=== PATIENT | male | born 1955 | race Caucasian/White ===

== ENCOUNTER 2023-05-05 11:53 | Day surgery (SDC) | payer MEDICARE, BC, SELFPAY ==
[2023-04-25 08:44] VITALS: BMI 24.3
[2023-05-05] VITALS (10 sets, daily range): BP systolic 110–179; BP diastolic 67–92; PULSE 70–90; RESP 12–20; TEMP 36.5–36.8; O2SAT 14–99; BMI 24.3
--- NOTE | 2023-05-05 | DI.RAD.S_ITS ---
PROCEDURE: XR HIP W PEL IF DONE RT 2V INDICATIONS: RIGHT ANTERIOR HIP TECHNIQUE: 2 view(s) of the hip acquired. COMPARISON: [facility] [place], [place], XR PELVIS WITH LATERAL HIP RIGHT, 03/14/2023, 14:25. FINDINGS: Multiple intraoperative fluoroscopy images demonstrate right hip arthroplasty, with hardware components in expected positions. The hip joint appears congruent. The visualized bony structures appear intact. IMPRESSION: Right hip arthroplasty. Dictated by: Corby Rodriguez M.D. on 05/05/2023 at 16:55 Approved by: Corby Rodriguez M.D. on 05/05/2023 at 16:56
--- NOTE | 2023-05-05 06:00 | DI.RAD.S_ITS ---
PROCEDURE: XR HIP W PEL IF DONE RT 2V INDICATIONS: postop TECHNIQUE: AP pelvis and lateral view of the right hip acquired. COMPARISON: [facility], [place], XR HIP W PEL IF DONE RT 2V, 05/05/2023, 15:21. FINDINGS: Bones: Patient is status post right hip arthroplasty, with hardware components in expected positions. The hip joint appears congruent. The visualized bony structures appear intact. Soft tissues: Overlying postoperative changes are noted. No suspicious soft tissue densities. IMPRESSION: Expected postoperative changes from right hip arthroplasty. Dictated by: Edil Patel M.D. on 05/05/2023 at 17:57 Approved by: Edil Patel M.D. on 05/05/2023 at 17:57
[2023-05-05] MEDS: CELECOXIB 200 MG CAPSULE PO (12:27)
[2023-05-05] MEDS: ACETAMINOPHEN 325 MG TABLET 975 MG PO (12:27)
[2023-05-05] MEDS: LACTATED RINGERS 1,000 ML 42 ML IV ×2 (12:28→14:57)
[2023-05-05] MEDS: VANCOMYCIN 1,000 MG/200 ML PIGGYBACK 200 MG IV (12:58)
[2023-05-05 13:05] LABS: Blood Urea Nitrogen 38 mg/dL (9-20); Calcium 9.4 mg/dL (8.4-10.2); Carbon Dioxide 22 mmol/L (22-32); Chloride 102 mmol/L (98-107); Estimated Glomerular Filt Rate 52 mL/min (>60); Glucose 111 mg/dL (80-110); Sodium 133 mmol/L (137-145)
[2023-05-05 13:07] LABS: HEMOLYSIS 102 (0-50)
[2023-05-05 13:12] LABS: Potassium 5.3 mmol/L (3.4-5.1)
--- NOTE | 2023-05-05 14:05 | PM.PREOP ---
Pre-operative Note Interval Note History & Physical reviewed/Exam performed by Physician: Yes Changes to H&P: Yes
[2023-05-05] MEDS: TRANEXAMIC ACID 1,000 MG VIAL 1000 MG INJ ×2 (14:32→16:19)
--- NOTE | 2023-05-05 14:50 | SUR.OPER ---
Supine on padded [place] table with bilateral legs secured in padded positioning boots and suspended in positioning spars, operative leg in traction per surgeon. Head on one pillow. Arm on non-operative side secured on padded armboard <90 degrees abduction. Arm on operative side padded and resting across chest then secured with tape over sheet. Padded perineal post in place per surgeon.
[2023-05-05] MEDS: CEFAZOLIN 2 GM/100 ML PREMIX 100 ML IV ×2 (14:56→23:00)
[2023-05-05] MEDS: BUPIVACAINE 0.25% (PF) 60 ML, EPINEPHrine 0.3 MG INJ (14:58)
[2023-05-05] MEDS: BUPIVACAINE LIPOSOME 266 MG/20 ML VIAL INJ (14:59)
--- NOTE | 2023-05-05 16:57 | P.OP_ITS ---
Operative Date/Time/Diagnoses Date of procedure: 05/05/23 Time of procedure: 14:20 Pre-op diagnosis: Severe right hip OA Post-op diagnosis: same Procedure & Clinicians Procedure: Right total hip arthroplasty anterior approach Same procedure as scheduled: Yes Indications: The patient has had progressively worsening right hip pain with radiographic changes consistent with arthritis. Non-operative management has failed and the patient has requested total hip replacement. The risks, benefits and alternatives to surgery were discussed with the patient prior to proceeding. Risks discussed included, but were not limited to, failure to relieve pain, leg length discrepancy, dislocation, stiffness, infection, nerve damage, deep venous thrombosis, pulmonary embolism, stroke, coma, heart attack, permanent paralysis and , as well as the potential need for eventual revision of the prosthetic. Surgeon: Gwen Borrero Miller Head Wet Process: Harsha Hill Anesthesia Type: Spinal Operative Notes Findings: Severe right hip OA and avascular necrosis with significant collapse of the femoral head, extensively fragmented head Closure Type: primary Specimen(s): none sent Prosthetic devices, grafts, tissues, transplants, or devices: Borrero and Nephew 58 mm cup, 58 x 36 neutral poly liner, size 7 standard offset a nthology a fit, two 6.5 mm screws, Estimated Blood Loss (mL): 250 Blood products transfused: none Procedure in detail: The patient was brought to the operating room. Patient was carefully positioned in the supine position. Time-out was performed and antibiotics were given. Anesthesia was induced. He was positioned in the on the table in order to allow hyperextension of the hip. The right lower extremity was prepped and draped in a standard sterile fashion. An anterior right hip incision was made 1 fingerbreadth lateral to the anterior superior iliac spine and extended distally towards the greater trochanter. Dissection was carried out through skin and subcutaneous tissues. Superficial hemostasis was achieved. The fascia over the tensor fascia fadumo was defined and incised with a knife. Two Allis clamps were used to grasp the fascia. Tensor fascia fadumo was retracted laterally. A gelpi retractor was placed. Dissection was carried out down along the neck. The circumflex vessels were carefully identified and cauterized with the Aqua Mantis. A PA was used throughout the procedure and was essential for retraction intraoperative positioning and helping assist with hemostasis. There was good visualization of the femoral neck. A Cobra was placed superior to the neck and the gluteus fibers were carefully stripped from that superior aspect of the capsule. A 2nd retractor was placed along the inferior aspect of the neck. The rectus insertion along the capsule was partially released. A 3rd retractor that was then gently placed over the rim of the acetabulum under the rectus. Capsule was carefully incised and released from the intertrochanteric line circumferentially superior to the mid sagittal line and inferiorly to the mid sagittal line until the lesser trochanter was palpable. A tag stitch was placed both in the superior and inferior limb of the capsular insertion. Along the acetabulum capsule was also released up to the mid sagittal 12:00 position. A portion of the labrum was resected. A saw was used to perform an osteotomy at the level of the intertrochanteric line and the junction of the superior femoral neck leaving approximately 1 finger breath of residual inferior neck above the lesser trochanter. A 2nd cut was made along the femoral neck at the base of the head and a napkin ring of neck was removed. Corkscrew was placed in the femoral head and the head was removed without difficulty. There was severe fragmentation of the femoral head. I did a limited synovectomy and picked fragments of the femoral head at the capsule. Retractors were then repositioned around the acetabulum. Residual labrum was resected and additional osteophytes were removed. A reamer that was 4 mm below the templated size was placed by hand in the acetabulum and it was reamed to centralize the acetabulum. It was then reamed up to 2 under the templated size and fluoroscopy was brought in to confirm the position of the reaming and depth of reaming. I reamed 1 under the anticipated size. He had moderate softening of his acetabulum. A trial cup was placed and noted that it was appropriately sized and fluoroscopy confirmed position and depth. The component was open and inserted without difficulty fluoroscopic imaging was used to confirm that the cup had been shilpa quately seated and was well positioned. It was further stabilized with 2 screws. Neutral poly liner was placed. The cup was tested and noted to be stable. Attention was then directed to the femur. The femur was gently hyperextended additional capsular release was performed as needed in order to allow adequate visualization of the proximal femur with elevation of the femur. Patient was placed in a hyperextended slightly adducted position with maximum external rotation. Box osteotome was used to check for any residual neck as well as sclerotic bone along the trochanter. [place] pepper was placed in the femur. Additional broaching was performed. Canal finder was used to determine the alignment of the canal and position. Size 1 broach was placed. The canal was then appropriately broached up to the templated size as long as there was adequate stability of the broach and serial advancement of the broach without excessive impingement. Specific attention was directed at avoiding varus attem pting to direct the distal aspect of the broach more anteriorly and avoiding excessive anteversion. Trial reduction showed acceptable range of motion, good stability, no posterior impingement, druze of leg length and appropriate lateral shuck. I also hyperflexed the hip and checked that there was no impingement anteriorly and there was good stability with flexion, adduction and internal rotation. Marcaine and Exparel were injected. The stem was placed without difficulty. Repeat trial reduction and x-ray showed acceptable overall position, length, and no evidence of the femoral fracture. Final head was placed. Wound was meticulously irrigated with normal saline. The hip was reduced and additional Exparel and Marcaine were injected. The capsule was closed with interrupted nonabsorbable sutures. The fascia of the tensor was closed with interrupted and running Vicryl. No drain was placed. Any tensor fascia fadumo muscle that appeared to be contused or injured which was a minimal amount was carefully resected. Capsule around the tensor was injected with Exparel and Marcaine. The skin was closed with barbed stitches for the subcutaneous tissue and skin. We also used surgical glue. The wound was dressed sterilely. Brief Betadine soak was also used and was meticulously irrigated with normal saline. Patient was transferred to recovery room in satisfactory condition. Complications: none Post-operative Condition: stable Disposition: Acute Care Plan for aftercare: The patient will be maintained on a standard total hip replacement protocol with weight bearing as tolerated and anterior hip precautions. The patient will receive Aspirin and sequential compression devices for DVT prophylaxis. The patient will be discharged home when safe for the home environment.
[2023-05-05] MEDS: OXYCODONE IR 5 MG TABLET PO (17:04)
[2023-05-05] MEDS: LACTATED RINGERS 1,000 ML 100 ML IV (17:45)
[2023-05-05] MEDS: ACETAMINOPHEN 325 MG TABLET 650 MG PO ×2 (17:46→23:00)
--- NOTE | 2023-05-05 19:25 | PC.NURSE ---
Patient is in alot of pain just got back from surgery, his pain level is 7 out of 10.
[2023-05-05] MEDS: HYDROMORPHONE 0.5 MG INJ IV (19:45)
[2023-05-05] MEDS: OXYCODONE IR 10 MG TABLET PO ×2 (20:39→23:00)
[2023-05-05] MEDS: ASPIRIN EC 81 MG TABLET PO (20:39)
[2023-05-05] MEDS: DOCUSATE 100 MG CAPSULE PO (20:40)
[2023-05-05] MEDS: GABAPENTIN 100 MG CAPSULE PO (20:41)
[2023-05-06] MEDS: IBUPROFEN 400 MG TABLET PO (01:55)
[2023-05-06] MEDS: OXYCODONE IR 5 MG TABLET PO (01:56)
[2023-05-06] MEDS: OXYCODONE IR 10 MG TABLET PO ×2 (04:02→09:31)
[2023-05-06 06:23] LABS: Hematocrit 26.7 % (41-53); Hemoglobin 9.2 g/dL (13.5-17.5)
[2023-05-06] MEDS: CEFAZOLIN 2 GM/100 ML PREMIX 100 ML IV (06:48)
[2023-05-06 08:52] VITALS: BP 159/96; PULSE 78
[2023-05-06] MEDS: GABAPENTIN 100 MG CAPSULE PO (08:52)
[2023-05-06] MEDS: lisinopriL 20 MG TABLET PO (08:52)
[2023-05-06] MEDS: DOCUSATE 100 MG CAPSULE PO (08:52)
[2023-05-06] MEDS: ASPIRIN EC 81 MG TABLET PO (08:53)
[2023-05-06] MEDS: polyethylene glycoL 3350 17 GM POWD.PACK PO (08:54)
[2023-05-06 09:13] VITALS: BP 159/96; PULSE 78; RESP 18; TEMP 36.7; O2SAT 98
--- NOTE | 2023-05-06 09:35 | PT.IIE ---
Current Diagnoses Unilateral primary osteoarthritis, right hip (05/05/23) Idiopathic aseptic necrosis of right femur (05/05/23) Surgery Performed Operation Date: 05/05/23 13:45 Actual Procedures p Total Hip Arthroplasty/Anterior Approach(Right) - Gwen Borrero MD Surgical History (Last Reviewed 05/06/23 @ 10:42 by Harsha Hill PA-C) History of hernia repair Status post excision of Matthews's neuroma Medical History (Last Reviewed 05/06/23 @ 10:42 by Harsha Hill PA-C) Arthritis History of meniscal tear Hypertension Physical Therapy Inpatient Evaluation/Re-Eval M1 PT/OT-IP Prior Functional Status Start: 05/06/23 12:22 Freq: NEEDED Status: Discharge Protocol: Document 05/06/23 09:35 AB (Rec: 05/06/23 12:46 AB [email or web address]) Medical Review Prior Functional Status Medical History Reviewed Yes Communication able to make needs known Mobility and Gait pt stated that he is modified independent with all mobilities and ambulation without AD but started using a SPC a month ago due to hip pain. per spouse, pt mostly in bed for the last 2 weeks due to hip pain but able to ambulate to the toilet using SPC Activities of Daily Living and IADL's Pt having pain with ADl needs. Social History Household Members spouse Living Arrangements House Number of Floors (Floors) One Floor Number of Stairs To Enter/Railing? 2 steps without rails to enter Home Environment Standard Height Toilet,Tub/ Shower Home Equipment Four Wheel Walker,Straight Cane,Raised Toilet Seat w/ Armrests,Shower Seat with Backrest,Hand Held Shower Additional Social History Comment spouse will be able to assist pt at home M2 PT-IP Current Condition Start: 05/06/23 12:22 Freq: NEEDED Status: Discharge Protocol: Document 05/06/23 09:35 AB (Rec: 05/06/23 12:46 AB [email or web address]) Physical Therapy Current Condition Current Condition Evaluation Date 05/06/23 Treatment Diagnosis s/p R ROLLY anterior approach; difficulty in walking Onset Date 05/05/23 M3 PT-IP Subjective Start: 05/06/23 12:22 Freq: NEEDED Status: Discharge Protocol: Document 05/06/23 09:35 AB (Rec: 05/06/23 12:46 AB [email or web address]) Subjective Physical Therapy Visit Type Type Initial Evaluation Visit Start Time 09:35 Visit Stop Time 11:14 Total Visit Minutes 84 Notes pt seen for split visits: 935 to 945am and 1000 to 1114 am. 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 Physical Therapy Visit Comments Patient Comments agreeable to do PT Therapy Pain Assessment Pain When Pain Assessed At Rest Location Right Hip Intensity 3 Scale Used pain increases with mobility to 7/10 Pain Behaviors Facial Grimacing,Guarding, Holding Area Pain Management Techniques Distraction,Modification of Treatment,Re-positioning, Timing of Activity with Medications M4 PT-IP Mobility and Gait Start: 05/06/23 12:22 Freq: NEEDED Status: Discharge Protocol: Document 05/06/23 09:35 AB (Rec: 05/06/23 12:46 [email or web address]) PT-Bed Mobility Assessment Supine to Sit Supine to Sit Minimal Assistance Sit to Supine Sit to Supine Minimal Assistance PT-Transfer Assessment Sit to and From Stand Sit to and from Stand Contact Guard Assistance Equipment Transfer Assistive Device Gait Belt,Front Wheeled Walker Orthotic/Prosthetic Devices or Brace: No Transfers Transfer Destination Chair Transfer Technique ambulated Transfer Ability Level of Assist Contact Guard Assistance,1 Person Assistance,Use of Upper Extremities Comments Mobility Comments checked on pt this morning and spouse in room and stated that pt is using the toilet. Spouse provided pt's home set up and PLOF. pt completed toileting. Assisted out from the toilet and required CGA with ambulation using FWW. pt impulsive. stated that he knows his hip precautions but pt tends not to adhere to his precautions. pt also ambulates on RLE with heel up and pt stated that he has pain when he puts weigth on RLE. educated on importance of weight bearing on RLE and WBAT per doctor's order. pt sat on EOB. Left pt with spouse and informed that PT will see pt again after rounds meeting. checked back on pt and pt in bed. spouse in room. educated pt and spouse regarding R hip anterior precautions. educated on bed positioning. heel slides completed prior to mobility in supine. pt completed supine to sit min A and max cues for techniques . pt with increase R hip guarding and tends to lean away from R hip in sitting and have LE in extension. educated pt on importance of midline positioning/posture and weight bearing on RLE. completed sit to stand CGA and ambulated in room using FWW ~ 20 ft CGA. pt sat on EOB and completed sit to supine min A with RLE elevation to bed. Caregiver training conducted. spouse assisted pt with bed mobility min A. educated on use of safety belt and how to assist pt. spouse was able to put safety belt on pt. assisted pt with sit to stand ambulation using FWW ~ 100 ft CGA. occasionally instructions provided by PT for hip precautions and safety . stair climbing training. educated spouse and pt on how to stairs using SPC + [employer]. pt completed up/down platform step using SPC and [employer] min A with PT assisting on first set . spouse counter demonstrated and was able to assist pt safely. pt ambulated back to his room using FWW CGA ~ 30 ft . sat on the chair. positioned on the chair. call light and table placed within reach. pt and spouse without further concerns. spouse stated that she will borrow a FWW but will buy one if needed. Gait Assessment Gait Gait Assistance Required: Contact Guard Assist Distance (Feet) 100 Able to Maintain Weight Bearing Status Yes During Gait Assistive Devices Assistive Device Gait Belt,Front Wheeled Walker Orthotic/Prosthetic Devices or Brace: No Gait Deviations General Gait Pattern Antalgic,Decreased Feet Clearance Factors Limiting Gait Function Factors Limiting Gait Function Decreased Activity Tolerance, Decreased Strength,Limited Range of Motion,Pain,Poor Balance,Poor Safety Awareness Stair Climbing Assessment Evaluation Level of Assist On Stairs Minimal Assistance Devices Stair Climbing Assistive Devices Straight Cane Technique/Endurance Stair Climbing Direction Ascend and Descend Stair Climbing Technique Step to Step Number of Steps Climbed 1 Query Text: Stair Climbing Set # Repetitions (reps) 2 PT-Balance Assessment Sitting Balance and Reactions Static Sitting Balance Ability Good Dynamic Sitting Balance Ability Fair Standing Balance and Reactions Static Standing Balance Ability Fair Dynamic Standing Balance Ability Fair Device Used FWW M5 PT-IP Objective Assessments Start: 05/06/23 12:22 Freq: NEEDED Status: Discharge Protocol: Document 05/06/23 09:35 AB (Rec: 05/06/23 12:46 AB [email or web address]) Orientation Orientation/Cognition Level of Alertness Alert Orientation Name,Place,Situation Language Function Ability No Deficits Noted Safety Awareness Decreased Safety Awareness Memory Description Short Term Impaired Gross Range of Motion Lower Extremity ROM Assessment Within Functional Limits Strength Lower Extremity Strength Assessment Right Impaired Hip 3-/5 Knee 4-/5 Coordination Assessment Gross Coordination Gross Coordination WNL Sensation Assessment Sensation Gross Sensation WNL Muscle Tone Muscle Tone WNL Yes M6 PT-IP Treatment Start: 05/06/23 12:22 Freq: NEEDED Status: Discharge Protocol: Document 05/06/23 09:35 AB (Rec: 05/06/23 12:46 AB [email or web address]) Physical Therapy Treatment Education Education Provided Precautions,Weight Bearing Status,Post-Op Packet,Safety M7 PT-IP Assessment and Plan Start: 05/06/23 12:22 Freq: NEEDED Status: Discharge Protocol: Document 05/06/23 09:35 AB (Rec: 05/06/23 12:46 AB [email or web address]) PT Summary Assessment and Plan Potential Rehabilitation Potential Fair Status of Condition at Evaluation Evolving Summary Impairments Pain,ROM,Strength,Balance, Coordination,Sensation,Tone, Cognition,Bed Mobility, Transfers,Gait,Activity Tolerance Assessment Summary pt is a 67 y/o male who underwent R ROLLY anterior approach. pt has R hip anterior precautions and is WBAT. educated pt and spouse regarding anterior hip precautions, mobility techniques and safety. pt requiring min A with bed mobility, CGA with transfers and ambulation using FWW and min A with stair climbing using SPC + [employer]. pt plans to go home with spouse and caregiver training completed. spouse is able to assist pt safely with mobility and may go home when medically stable. pt stated that he has outpt PT set up. Goals Bed Mobility Goal Independent Transfer Goal Independent,Front Wheeled Walker Gait Goal Independent,Front Wheel Walker Gait Distance 250 Other Goals up/down 2 steps using SPC+ [employer] CGA Days to Meet Goals 5 Frequency of Treatment Frequency Of Treatment Twice a Day Treatment Plan Physical Therapy Treatment Plan Bed Mobility Training,Transfer Training,Gait Training, Therapeutic Exercise,Balance Retraining,Post Op Education, Discharge Planning,Hot or Cold Pack,Neuromuscular Re-ed, Coordination Retraining,Manual Therapy Precautions Anterior Hip Precautions No Hip Extension,No Hip External Rotation Weight Bearing Status Weight Bearing Status Weight Bear as Tolerated Allowed Weight Bearing Amount (enter % RLE WBAT or #) (%) Recommendations To Nursing Amount of Assist Needed 1 Person Assist Discharge Recommendations PT Discharge Recommendations Home with Assistance, Outpatient PT Equipment Needed for Home Before FWW Discharge Transportation Needs at Discharge Private Vehicle
--- NOTE | 2023-05-06 10:40 | P.DS_ITS ---
History of Present Illness History of Present Illness Date Patient Seen: 05/06/23 Time Patient Seen: 07:50 Chief complaint: Hip pain Narrative: Hip pain is [id number]. Denies fever or chills. No nausea or vomiting. Patient has assistance at home. Discharge Providers Provider Discharge Date: 05/06/23 Primary care physician: Yung Alejandre MD Consults: 05/05/23 06:00 Consult to Anesthesiology Routine Comment: Consulting Provider: Anesthesiologist Reason for consultation: Regional block for post operative pain control 05/05/23 17:21 Consult to Discharge Planning Routine Comment: Consult to Occupational Therapy Evaluate & Treat Comment: Physician Instructions: Evaluate and treat Consult to Physical Therapy Evaluate & Treat Comment: Physician Instructions: post op ROLLY protocol Discharge provider: Harsha Hill PA-C Summary Hospital Course Discharge Diagnosis: Avascular necrosis right hip Hospital Course: Patient admitted to the hospital for right total hip arthroplasty due to avascular necrosis. Patient consented to the same. Patient underwent right total hip arthroplasty, anterior approach May 05, 2023. Patient back in his room recovering well as in stable condition. Patient will mobilize with physical therapy. Anterior hip precautions. Multimodal pain management. Discharge home today after physical therapy if safe for home environment. Status at Discharge Cognitive/behavioral status at discharge: at baseline, oriented Functional status at discharge: uses cane/walker Overall status at discharge: patient is progressing back to baseline Exam Vital Signs (past 8 hours): - 05/06/23 08:52 05/06/23 09:13 Temperature 98.0 F Pulse Rate 78 78 Respiratory Rate 18 Blood Pressure 159/96 H 159/96 H Pulse Oximetry 98 Oxygen Delivery Method Room Air Oxygen Flow Rate 0 Narrative Exam Narrative: 67-year-old male resting comfortably in no apparent distress. Dressing is clean, dry and intact. Motor functions intact bilateral lower extremities. Sensation grossly intact to light touch. Const General: cooperative and comfortable Nutritional Appearance: average body habitus Orientation: alert Resp Effort & Inspection: normal respiratory effort and able to speak in complete [facility] Objective Labs 05/06/23 06:10 05/05/23 12:00 Labs: Laboratory Results - last 24 hr 05/05/23 05/06/23 12:00 06:10 Hgb 9.2 L Hct 26.7 L Sodium 133 L Potassium 5.3 H Chloride 102 Carbon Dioxide 22 BUN 38 H Creatinine 1.46 H Estimated GFR 52 L BUN/Creatinine Ratio 26.0 H Glucose 111 H Calcium 9.4 PFSH Medical History Arthritis History of meniscal tear Hypertension Surgical History History of hernia repair Status post excision of Matthews's neuroma Social History household members: spouse Smoking Status: Current some day smoker alcohol intake: current Discharge Assessment & Plan Assessment and Plan Assessment: Patient progressing as expected status post right total hip arthroplasty, anterior approach Plan of Treatment: Mobilize with physical therapy, anterior hip precautions Multimodal pain management Follow up Orthopedics in 2 weeks Discharge home today after physical therapy if safe for home environment Discharge Plan Discharge Plan Patient Disposition: Home Discharge orders & Medications Discharge Orders: Discharge (Order); Ordered 05/06/23 Ordered By: Harsha Hill Prescriptions: New acetaminophen 325 mg Tablet 650 mg PO Q6H Qty: 60 0RF polyethylene glycol 3350 17 gram Powder In Packet 17 g PO DAILY PRN (Reason: Constipation) Qty: 14 0RF Continued methocarbamol 500 mg tablet 500 mg PO QID meloxicam 15 mg tablet 15 mg PO DAILY lisinopril 20 mg tablet 20 mg PO DAILY gabapentin 100 mg capsule 100 mg PO 3XD oxycodone 5 mg tablet 5 mg PO Q4-6H PRN (Reason: pain) Discontinued acetaminophen 500 mg Tablet 1,000 mg PO TID Follow up/Referrals: Yung Alejandre MD [Primary Care Provider] - (Follow up in the near future to address elevated potassium on preop labs) Gwen Borrero MD [Physician] - (2 weeks as scheduled) Diet/Activity/Treatments Diet: Diet as Tolerated Activity: Weight-bearing as tolerated, anterior hip precautions Cold/Heat Therapy: Ice to hip as needed Skin/Wound/Dressing Care Report to your healthcare provider any signs of infection, such as:: chills, fever, night sweats, increased pain, unusual drainage and unusual redness Dressing: Keep dressing clean and dry Visit Report/Discharge Packet Instructions: DI for Hip Replacement Stand Alone Forms: Patient Portal/API, Surgery Discharge Discharge Data Primary Care Provider: Yung Alejandre Attending Provider: Gwen Borrero VTE Deep Vein Thrombosis/Pulmonary Embolism Present on Admission: No
--- NOTE | 2023-05-06 11:30 | OT.IP.EVAL ---
Current Diagnoses Unilateral primary osteoarthritis, right hip (05/05/23) Idiopathic aseptic necrosis of right femur (05/05/23) Surgery Performed Operation Date: 05/05/23 13:45 Actual Procedures p Total Hip Arthroplasty/Anterior Approach(Right) - Gwen Borrero MD Past Medical History (Last Reviewed 05/06/23 @ 10:42 by Harsha Hill PA-C) Arthritis History of meniscal tear Hypertension Surgical History (Last Reviewed 05/06/23 @ 10:42 by Harsha Hill PA-C) History of hernia repair Status post excision of Matthews's neuroma Occupational Therapy Inpatient Evaluation/Re-Eval M1 PT/OT-IP Prior Functional Status Start: 05/06/23 11:50 Freq: NEEDED Status: Active Protocol: Document 05/06/23 11:15 [facility] (Rec: 05/06/23 12:14 [facility] [id number]) Medical Review Prior Functional Status Communication Independent Activities of Daily Living and IADL's Pt having pain with ADl needs. Prior Functional Level (Other details) Pt has supportive to be able able to assist him at home. Social History Household Members spouse Living Arrangements House Number of Floors (Floors) One Floor Number of Stairs To Enter/Railing? 2 steps Home Environment High Toilet,Tub/Shower Home Equipment Front Wheel Walker,Straight Cane,Raised Toilet Seat w/ Armrests,Shower Seat with Backrest,Hand Held Shower M2 OT-IP Current Condition Start: 05/06/23 11:50 Freq: Status: Active Protocol: Document 05/06/23 11:15 [facility] (Rec: 05/06/23 12:14 [facility] [id number]) Occupational Therapy Current Condition Current Condition Evaluation Date 05/06/23 Treatment Diagnosis S/P R ROLLY Anterior approach Post Operative Precautions Anterior Hip Precautions No Hip Extension,No Hip External Rotation M3 OT- IP Subjective and Pain Start: 05/06/23 11:50 Freq: Status: Active Protocol: Document 05/06/23 11:15 [facility] (Rec: 05/06/23 12:14 [facility] [id number]) OT- Subjective Occupational Therapy Visit Type Type Initial Evaluation Visit Start Time 11:15 Visit Stop Time 11:30 Total Visit Minutes 15 Occupational Therapy Visit Comments Patient Comments Pt in the room and on his way to the bathroom with his . Patient/Caregiver Goals TO go home. OT Pain Assessment Pain When Pain Assessed At Rest Pain Present Pain Present Pain Reported Location Right Hip Intensity 5 Scale Used Numeric (0 - 10) M4 OT- IP ADL's Start: 05/06/23 11:50 Freq: Status: Active Protocol: Document 05/06/23 11:15 [facility] (Rec: 05/06/23 12:14 [facility] [id number]) OT CSC-Mtqt-Atczlcd General Evaluation Self-Feeding Ability Independent OT ADL-Grooming General Evaluation Grooming Ability Independent OT ADL-Oral Care General Eval Oral Care Ability Independent OT ADL-Dressing Comments OT Dressing Comments Pt already dressed when OT came in. Reiterated to dress the affected side first and take out last. OT ADL-Toileting General Evaluation Toileting Ability Standby Assistance Comments OT Toileting Comments Pt able to stand over the toilet with FWW to urinate. OT ADL-Bathing Comments OT Bathing Comments not performed M5 OT- IP IADL's Start: 05/06/23 11:50 Freq: Status: Active Protocol: Document 05/06/23 11:15 [facility] (Rec: 05/06/23 12:14 [facility] [id number]) OT-Instrumental Activities of Daily Living Deficits IADL Deficits Identified Deficits Home Safety Awareness Awareness of Need for Assistance at Home Good Awareness Ability to Problem Solve Emergency Able to Problem Solve Situations Home Safety Comments Pt has a supportive to assist for his needs as needed . Medication Management Medication Management No Deficits Identified Money Management Money Management No Deficits Identified M6 OT- IP Functional Cognition Start: 05/06/23 11:50 Freq: Status: Active Protocol: Document 05/06/23 11:15 [facility] (Rec: 05/06/23 12:14 [facility] [id number]) Cognitive Factors Limiting Selfcare Function Cognitive Ability Level of Alertness Alert Patient Orientation Name,Age,Birthday,Month,Date, Year,Day of Week,Place, Situation Attention Span Ability Capable of Focused Attention, Capable of Sustained Attention Ability to Follow Commands Able to Follow Multi-Step Commands Safety Awareness Decreased Ability to Apply Precautions Cognitive Comments Cognitive Assessment Comments Pt needs reminders or which foot to step with going forwards or backwards and needs to stop an think about it at times. Suggested to have signs posted in the house to remind him, otherwise his is very capable to do so. OT- Vision and Hearing OT- Hearing Assessment OT- Hearing Assessment WFL OT- Vision Assessment Visual Acuity Glasses For Reading M7 OT- IP Mobility and Balance Start: 05/06/23 11:50 Freq: Status: Active Protocol: Document 05/06/23 11:15 [facility] (Rec: 05/06/23 12:14 [facility] [id number]) OT- Bed Mobility Assessment Sit to Supine Sit to Supine Assist Minimal Assistance OT-Transfer Assessment Sit to and From Stand Sit to and from Stand Contact Guard Assistance Transfers Transfer Ability Contact Guard Assistance Technique Transfer Destination Bed,Chair Transfer Technique Stand Step Pivot Devices Transfer Assistive Devices Gait Belt,Front Wheeled Walker Comments Mobility Comments JAMES from his to help get his right leg into the bed. Pt's is safe to assist pt for all mobility needs. Able to go over technique for car transfer as pt has a step to step back to get into the car. OT- Balance Assessment Sitting Balance and Reactions Static Sitting Balance Ability Normal Dynamic Sitting Balance Ability Good Standing Balance and Reactions Static Standing Balance Ability Good Dynamic Standing Balance Ability Fair M8 OT- IP Objective Assessments Start: 05/06/23 11:50 Freq: Status: Active Protocol: Document 05/06/23 11:15 [facility] (Rec: 05/06/23 12:14 [facility] [id number]) OT Gross Range of Motion Upper Extremity Range of Motion Assessment Within Functional Limits OT Strength Upper Extremity Strength Assessment Within Functional Limits OT-Muscle Tone Assessment Muscle Tone WNL Yes M9 OT- IP Assessment and Plan Start: 05/06/23 11:50 Freq: Status: Active Protocol: Document 05/06/23 11:15 [facility] (Rec: 05/06/23 12:14 [facility] [id number]) OT Summary Assessment and Plan Potential Rehabilitation Potential Excellent Analytic Complexity at Evaluation Low Summary OT Impairments Pain,Functional Mobility, Bathing,Shower Transfers Progress Towards Goals Progressing Toward Goals Assessment Summary Pt low complexity and main barriers are steps, needing assist to get his RLE into and out of the bed, and will need his to assist for bathing needs especially. Pt to go home with assist and have outpt PT. 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 Goals Grooming Goal Independent Dressing Goal Independent Toileting Goal Independent Bathing Goal Independent Toilet Transfer Goal Independent Shower Transfer Goal Independent Days to Meet Goals 5 Frequency of Treatment Frequency Of Treatment Once a Day Treatment Plan OT Treatment Plan ADL Training,Functional Cognition Training,Patient/ Family Education,Discharge Planning Discharge Recommendations OT Discharge Recommendations Home with Assistance, Outpatient PT Home Equipment Needs FWW Transportation Needs at Discharge Private Vehicle
--- NOTE | 2023-05-06 11:47 | PC.NURSE ---
Patient worked with PT/OT this morning, cleared for discharge. SBA w/ FWW, tolerated ambulation well. No complaints of nausea, pain adequately controlled w/ ordered PO pain medication. VSS, on RA. R hip incision covered w/ aquacel dressing is clean, dry, and intact. CMS positive. Discharge education given to patient and spouse, patient/spouse verbalized understanding, all questions answered. Pt/spouse aware of follow-up appt. IV removed. All belongings are with patient.
--- NOTE | 2023-05-06 15:38 | CM.DANOTE ---
Initial DCP Assessment Note Pt is a 67 yo male, resident of [place], now POD#1 from Rt hip surgery by Dr Borrero PCP: Yung Alejandre Payer: [facility] Reviewed chart, pt discussed in multidisciplinary rounds this morning. Therapy has cleared pt for return home w/family to assist and pt has planned for home, DC order from Ortho has already been initiated this morning. No barriers identified at this time to patient's safe discharge home w/family to assist; close outpatient f/u recommended. CM team will plan to follow closely in case any DC needs or concerns arise. SCOT Landin Discharge Planning/Care Management CM Discharge Assessment Start: 05/06/23 15:36 Freq: Status: Active Protocol: Document 05/06/23 15:37 [facility] (Rec: 05/06/23 15:38 [facility] [id number]) Discharge Planning Assessment Assigned Circuit Recorder SCOT Preciado DPOA/Assigned Designee Name Queenie Carnes, spouse Contact Information [phone] Advance Directives? Yes Advance Directives on File Yes History Provided By Patient,Medical Record Prior Living Arrangements House Household Members spouse Type of transporation used prior to Drives own vehicle admit Independent with ADL's Yes Is patient alert and oriented? Yes Patient/Family Preference OP PT Therapy Barriers to Discharge No Discharge Plan Home Transportation Arrangement Family Referrals Initiated None needed
== END 2023-05-06 12:20 | disposition home or self-care (01) ==
LOC: OR 11:56 → AC 11:58
PROVIDERS: Anesthesiology; PCP Family Medicine; Referring Provider Orthopaedic Surgery; Visit Provider Orthopaedic Surgery
PROC: (CPT 27130; principal; 2023-05-05 13:45)
DX: M16.11 Unilateral primary osteoarthritis, right hip (principal); M87.051 Idiopathic aseptic necrosis of right femur; I10 Essential (primary) hypertension
CPT/HCPCS: 27130; 36415; 73502; 76000; 80048; 85014; 85018; 97162; 97165; 97530; C1776; C9290; J0171; J0690; J1170; J2250; J2704; J3010